=== PATIENT | male | born 1960 | race Caucasian/White ===

== ENCOUNTER 2019-05-24 05:50 | Emergency (ER) | payer OTHER ==
[~2019-05-24] VITALS: Ht 188 cm; Wt 81.6 kg
[2019-05-24 05:52] VITALS: BP 122/67
--- NOTE | 2019-05-24 05:52 | NUR ---
58 Y/O MALE BIBA C/O LEFT KNEE PAIN. PER EMS, PATIENT WAS FOUND AT A [facility]UT [facility]OP IN [place]. PATIENT BUMPED HIS KNEE ON UNKNOWN AND STATED HE COULDN'T WALK BECAUSE OF THE PAIN. A/OX4 FOLLOWS COMMANDS; PAIN IS A 6/10 ACUTE PAIN. PT. DENIES ANY OTHER INJURYSKIN IS DRY; KNEE IS TENDER TO TOUCH. RANGE OF MOTION OF KNEE IS LIMITED; HOWEVER, PATIENT IS ABLE TO AMBULATE WITH ASSISTANCE . ERMD MADE AWARE OF STATUS. SIDE RAILSX1. PMH: DENIES RX:DENIES NKDA
[2019-05-24] MEDS ORDERED: IBUPROFEN 600 MG TAB PO ONE (06:05)
[2019-05-24 06:15] VITALS: BP 122/67
== END 2019-05-24 07:15 | disposition home or self-care (01) ==
LOC: MED 05:50
DX: M25.562 Pain in left knee (principal); M25.462 Effusion, left knee; F17.210 Nicotine dependence, cigarettes, uncomplicated; Z59.0 Homelessness
CPT/HCPCS: 73562; 99283; Q0092; 99281; 99282

== ENCOUNTER 2019-05-24 09:45 | Emergency (ER) | payer OTHER ==
[~2019-05-24] VITALS: Ht 182.9 cm; Wt 81.6 kg
[2019-05-24 10:09] VITALS: BP 129/76
--- NOTE | 2019-05-24 10:19 | NUR ---
per pt, he receives SSI "$40 checks every wednesday". Informed social work assistant Vandana, she states his only option would be going to the [facility].
--- NOTE | 2019-05-24 10:20 | NUR ---
PT RETURNED TO ER AFTER BEING D/C THIS MORNING. PT STATES HE WANTS TO BE PLACED IN A CORRECTION. PT INITIALLY REPORTED CONFUSION BUT IS ALERT AND ANSWERING QUESTIONS APPROPRIATELY AT THIS TIME. GCS 15/15. PT SITTING IN CHAIR A EATING THE MEAL THAT WAS PROVIDED AT THIS TIME
--- NOTE | 2019-05-24 10:26 | NUR ---
attemped to call contact Marcy, no answer. Pt states he will go to the address below if he is provided with a taxi voucher. [facility] [address], [place]
--- NOTE | 2019-05-24 10:50 | NUR ---
KRYSTAL MACK APPROVED BY BRISA SALGADOLIQUOR RECTIFIER. CAB SERVICE CALLED. ETA IS - 30-40 MINS. Addendum: 05/24/19 at 1057 by SYED APPROVED BY BRISA PATELLIQUOR RECTIFIER
--- NOTE | 2019-05-24 11:01 | NUR ---
PT D/C WITH VSS. PT STILL WEARING CLOTHES PROVIDED FROM PREVIOUS VISIT THIS MORNING 05/24/19. PT HAS WEATHER APPROPRAITE JACKET. FOOD PROVIDED AND EATEN DURING STAY IN EMERGENCY DEPT. PT HAS AGREED TO WAIT IN LOBBY FOR CAB.
--- NOTE | 2019-05-24 11:05 | NUR ---
PT MOVED TO LOBBY. REFUSED TO TAKE DISCHARGE INSTRUCTIONS.
[2019-05-24 11:06] VITALS: BP 129/76
== END 2019-05-24 12:04 | disposition home or self-care (01) ==
LOC: MED 09:45
DX: S89.92XA Unspecified injury of left lower leg, initial encounter (principal); F17.200 Nicotine dependence, unspecified, uncomplicated; Z98.890 Other specified postprocedural states; Z59.0 Homelessness; Z71.6 Tobacco abuse counseling; X58.XXXA Exposure to other specified factors, initial encounter; Y93.89 Activity, other specified; Y92.89 Other specified places as the place of occurrence of the external cause; Y99.8 Other external cause status
CPT/HCPCS: 99281